=== PATIENT | female | born 1960 | race Caucasian/White ===

== ENCOUNTER 2017-06-23 07:16 | Emergency (ER) | payer SELFPAY ==
[~2017-06-23] VITALS: Ht 162.6 cm; Wt 73.0 kg
[2017-06-23 07:18] VITALS: BP 179/92; PULSE 81; RESP 16; TEMP 98.1; O2SAT 97
--- NOTE | 2017-06-23 07:40 | PD ---
HPI Chief Complaint: Injury Time Seen by Provider: 07:23 Travel History International Travel<30 days: No Contact w/Intl Traveler<30days: No Traveled to known affect area: No History of Present Illness HPI This 57-year-old female is complaining of pain in her right wrist. Around 7:00 last night she fell and landed on her wrist. It was a mechanical fall. There is no other injury. She has been having persistent pain in the wrist since then. She has no prior injury to this wrist. She has not taken anything for the pain. [facility] Social History Tobacco Use: No Allergies-Medications (Allergen,Severity, Reaction): Coded Allergies: No Known Allergies (Unverified , 06/23/17) Reported Meds & Prescriptions Reported Meds & Active Scripts Active No Active Prescriptions or Reported Medications Review of Systems Except as stated in HPI: all other systems reviewed are Neg General / Constitutional: No: Fever, Chills HENT: No: Headaches Cardiovascular: No: Chest Pain or Discomfort Skin: No Rash Physical Exam Narrative GENERAL: Well-developed female SKIN: Focused skin assessment warm/dry. HEAD: Atraumatic. Normocephalic. EYES: Pupils equal and round. No scleral icterus. No injection or drainage. ENT: No nasal bleeding or discharge. Mucous membranes pink and moist. NECK: Trachea midline. No JVD. MUSCULOSKELETAL: The right wrist is swollen and tender. The skin is intact. Tenderness is greatest over the snuffbox in the distal radius. The elbow and metacarpals are nontender NEUROLOGICAL: Awake and alert. No obvious cranial nerve deficits. Motor grossly within normal limits. Normal speech. PSYCHIATRIC: Appropriate mood and affect; insight and judgment normal. Data Data Last Documented VS Vital Signs Date Time Temp Pulse Resp B/P (MAP) Pulse Ox O2 Delivery O2 Flow Rate FiO2 06/23/17 07:18 98.1 81 16 179/92 (121) 97 Orders Orders Wrist, Complete ([id number]) (06/23/17 07:23) Splint Or Brace Apply/Monitor (06/23/17 08:01) [facility] Medical Decision Making Medical Screen Exam Complete: Yes Emergency Medical Condition: Yes Medical Record Reviewed: Yes Differential Diagnosis Differential includes contusion, fracture Narrative Course X-ray shows a fracture of the wrist. There is a fracture of the ulnar styloid. There is an intra-articular fracture of the radius with some radial displacement and slight volar angulation. I have spoke with Dr. Sreedhar Archibald. He would like the patient to come to his office at [facility] today for evaluation. Pain medicine has been offered but the patient declines Diagnosis Primary Impression: Fracture of right wrist Referrals: Sreedhar Reed MD Additional Instructions: Go to Dr. Archibald's office on [facility] at [facility] today to see Dr. Archibald. Continue icing the wrist every 3-4 hours Scripts No Active Prescriptions or Reported Meds Disposition: 01 DISCHARGE HOME Condition: Stable Ayad Red MD Jun 23, 2017 07:40
--- NOTE | 2017-06-23 08:17 | RADRPT ---
EXAM DATE/TIME: 06/23/2017 07:31 [place] COMPARISON: No previous studies available for comparison. INDICATIONS : Right wrist pain post fall while playing tennis last night. MEDICAL HISTORY : Left wrist fracture. SURGICAL HISTORY : None. ENCOUNTER: Initial ACUITY: 2 days PAIN SCORE: 8/10 LOCATION: Right wrist FINDINGS: There is a mildly comminuted impacted fracture of the distal radius with palmar angulation of distal fragment. There is also fracture involving the ulnar styloid. Carpal bones appear intact. Diffuse sof t tissue swelling about the wrist. CONCLUSION: 1. Distal radial and ulnar styloid fractures, as above. Brendan Guthrie MD on June 23, 2017 at 7:51 Board Certified Radiologist. This report was verified electronically.
== END 2017-06-23 08:45 | disposition home or self-care (01) ==
LOC: PHED 07:16
DX: S52.501A Unspecified fracture of the lower end of right radius, initial encounter for closed fracture (principal); S52.611A Displaced fracture of right ulna styloid process, initial encounter for closed fracture; W19.XXXA Unspecified fall, initial encounter
CPT/HCPCS: 29125; 73110

== ENCOUNTER → 2017-07-01 | Day surgery (SDC) | payer OTHER ==
[~2017-07-01] MED LIST: ACETAMINOPHEN/HYDROcodone 325 MG/5 MG TAB ONE; BUPIVACAINE HCL PF 0.75% 30 ML VIAL ONE; BUPIVACAINE/EPINEPHRINE 0.5% PF 10 ML VIAL ONE; KETOROLAC TROMETHAMINE 30 MG/ML (IVP) VIAL IV PUSH ONE; LACTATED RINGER'S 1000 ML INJ 1,000 ML ONE; MIDAZOLAM HCL 2 MG/2 ML VIAL ONE; ONDANSETRON HCL 4 MG/2 ML VIAL IV PUSH ONE; PROPOFOL 200 MG/20 ML AMP IV ONE; ceFAZolin INJ 1,000 MG VIAL ONE
--- NOTE | 2017-07-01 10:22 | PD.OP ---
cc: Sreedhar Reed MD Operative Report Date of Surgery: July 01, 2017 Preoperative Diagnosis: Fracture right distal radius, Jolly variant Postoperative Diagnosis: Same Procedure: Open treatment internal fixation with volar plate right distal radius Anesthesia: General Surgeon: Sreedhar Reed Color Print Inspector(s): CARMENZA Hou Operation and Findings: EBL: Minimal INDICATION: This patient is a 57-year-old female who 10 days ago sustained a fracture of the right distal radius. X-ray showed evidence of a Jolly variant displaced volar fracture. She presents for surgical treatment. NOTE: Belkis Hou PA-C was present for the entire surgical procedure as my care team assistant. In my medical opinion her skill and care was necessary for proper management of this patient. PROCEDURE: The patient was brought to the operating room and anesthetized in the supine position. This patient was positioned with the arm on the arm table. Fluoroscopy was used for visualization. A timeout was done. Antibiotics were given within 1 hour time window. The right arm was scrubbed with alcohol followed by Hibiclens followed by ChloraPrep and draped sterilely. A tourniquet was placed after exsanguination the tourniquet was inflated to 250 mmHg. A volar incision was made along the flexor carpi radialis tendon. The pronator quadratus was lifted from its radial attachment. The fracture was visualized. This was brought into a reduced position and held. A volar plate was positioned and held provisionally. Intraoperative x-ray showed anatomic alignment. Multiple distal locking screws were placed as well as shaft screws. The fracture was reduced anatomically. Intraoperative x-rays were obtained confirming the same. The tourniquet was let down. Hemostasis was controlled with the bipolar cautery. The wound was dry. The fascia was closed with 2-0 Vicryl suture. The skin and subcutaneous tissue was approximated with interrupted 3-0 nylon in a mattress fashion. A sterile dressing and a splint was applied. The patient was awakened and taken to the recovery room in satisfactory condition. COMPANY: Sreedhar Benjamin MD July 01, 2017 10:22
== END | disposition home or self-care (01) ==
LOC: ESDC 06:51
PROVIDERS: ATTEND Orthopaedic Surgery Orthopaedic Surgery of the Spine
DX: S52.541A Smith's fracture of right radius, initial encounter for closed fracture (principal)
CPT/HCPCS: 01830; 25607; 73100; 76000; C1713; J0690; J1885; J2250; J2405; J3010; J7120